=== PATIENT | female | born 1945 | race Caucasian/White ===

== ENCOUNTER 2018-12-10 01:29 | Emergency (ER) | payer MEDICARE, OTHER ==
[~2018-12-10] VITALS: Ht 152.4 cm; Wt 81.6 kg
[2018-12-10 01:57] LABS: BASO # 0.1 x10^3/uL (0.0-0.2); BASO % 1 % (0-3); EOS # 0.4 x10^3/uL (0.0-0.7); EOS % 3 % (0-3); HEMATOCRIT 42.4 % (36.0-47.0); HEMOGLOBIN 13.6 g/dL (12.0-15.5); LYMPH # 1.7 x10^3/uL (1.0-4.8); LYMPH % 12 % (24-48); MEAN CORPUSCULAR HEMOGLOBIN 28 pg (25-35); MEAN CORPUSCULAR HGB CONC 32 g/dL (31-37); MEAN CORPUSCULAR VOLUME 86 fL (79-100); MONO # 0.7 x10^3/uL (0.0-1.1); MONO % 5 % (0-9); NEUT # 11.5 x10^3uL (1.8-7.7); NEUT % 79 % (31-73); PLATELET COUNT 341 x10^3/uL (140-400); RED BLOOD COUNT 4.91 x10^6/uL (3.50-5.40); RED CELL DISTRIBUTION WIDTH 15.1 % (11.5-14.5); WHITE BLOOD COUNT 14.5 x10^3/uL (4.0-11.0)
[2018-12-10] MEDS ORDERED: IV NORMAL SALINE 1000ML BAG 1,000 ML IV ONE (02:00)
[2018-12-10 02:08] LABS: CALCIUM 9.3 mg/dL (8.5-10.1); CREATININE 0.9 mg/dL (0.6-1.0); GFR 61.2
[2018-12-10 02:14] LABS: ALBUMIN 3.4 g/dL (3.4-5.0); ALBUMIN/GLOBULIN RATIO 0.8 (1.0-1.7); TOTAL BILIRUBIN 0.2 mg/dL (0.2-1.0); TOTAL PROTEIN 7.7 g/dL (6.4-8.2)
--- NOTE | 2018-12-10 02:30 | PHYS DOC ---
Past Medical History Past Medical History: Depression, GERD, Hypothyroid Past Surgical History: Other Additional Past Surgical Histo: RIGHT WRIST SURGERY Alcohol Use: None Drug Use: None Adult General Chief Complaint Chief Complaint: BACK PAIN OR INJURY HPI HPI Patient is a 73 year old female presents to the ED with epigastric pain and back pain. She states that the pain started in her mid thoracic region 2.5 hours ago while sitting up in bed reading. She took ibuprofen and then noticed that the pain either radiated to the mid epigastric region or the ibuprofen cause stomach upset, she cannot tell which. She threw up a small amount which seemed to help her epigastric pain. The back pain and epigastric pain are 3/10 achy pains currently, which is slightly better than when they first started. The pain does not radiate anywhere else and has no aggravating or alleviating factors. Denies fever/chills. Denies trauma. Review of Systems Review of Systems Constitutional: Denies fever or chills [] Eyes: Denies change in visual acuity, redness, or eye pain [] HENT: Denies nasal congestion or sore throat [] Respiratory: Denies cough. Admits shortness of breath. Cardiovascular: Admits chest pain. Denies palpitations. GI: Admits abdominal pain, nausea, and vomiting. Denies bloody stools or diarrhea [] : Denies dysuria or hematuria [] Musculoskeletal: Admits back pain. Denies joint pain. Integument: Denies rash or skin lesions [] Neurologic: Denies headache, focal weakness or sensory changes [] Complete systems were reviewed and found to be within normal limits, except as documented in this note. Current Medications Current Medications Current Medications Medications (Trade) Dose Ordered Sig/Kourtney Start Time Stop Time Status Last Admin Dose Admin Hydralazine HCl (Apresoline Inj) 20 mg 1X ONCE 12/10/18 02:45 12/10/18 02:46 DC 12/10/18 03:20 20 MG Info (CONTRAST GIVEN -- Rx MONITORING) 1 each PRN DAILY PRN 12/10/18 03:15 12/10/18 05:24 DC Iohexol (Omnipaque 350 Mg/ml) 90 ml 1X ONCE 12/10/18 03:15 12/10/18 03:16 DC 12/10/18 03:22 90 ML Sodium Chloride 1,000 ml @ 1,000 mls/hr 1X ONCE 12/10/18 02:00 12/10/18 02:59 DC 12/10/18 02:19 1,000 MLS/HR Allergies Allergies Allergies Coded Allergies Type Severity Reaction Last Updated Verified Penicillins Allergy Unknown 12/10/18 Yes Physical Exam Physical Exam Constitutional: Well developed, well nourished, no acute distress, non-toxic appearance. [] HENT: Normocephalic, atraumatic, bilateral external ears normal, nose normal. [] Eyes: EOMI, conjunctiva normal, no discharge. [] Neck: Normal range of motion, no tenderness, supple Cardiovascular: Heart rate regular rhythm, no murmur [] Lungs & Thorax: Bilateral breath sounds clear to auscultation [] Abdomen: Soft, mild epigastric tenderness. Negative Garcia's sign. Skin: Warm, dry, no erythema, no rash. [] Back: No paraspinal tenderness. Patient stated the pain feels deep to the mid thoracic region. No CVA tenderness. [] Extremities: No tenderness, no cyanosis, no clubbing, ROM intact, no edema. [] Neurologic: Alert and oriented, normal motor function, normal sensory function, no focal deficits noted. [] Psychologic: Affect normal, judgement normal, mood normal. [] Current Patient Data Vital Signs Vital Signs Date Time Temp Pulse Resp B/P (MAP) Pulse Ox O2 Delivery O2 Flow Rate FiO2 12/10/18 05:10 92 18 170/74 (106) 98 Room Air 12/10/18 01:35 98.2 98.2 Lab Values Laboratory Tests Test 12/10/18 01:50 12/10/18 02:20 12/10/18 04:05 White Blood Count 14.5 x10^3/uL (4.0-11.0) H Red Blood Count 4.91 x10^6/uL (3.50-5.40) Hemoglobin 13.6 g/dL (12.0-15.5) Hematocrit 42.4 % (36.0-47.0) Mean Corpuscular Volume 86 fL (79-100) Mean Corpuscular Hemoglobin 28 pg (25-35) Mean Corpuscular Hemoglobin Concent 32 g/dL (31-37) Red Cell Distribution Width 15.1 % (11.5-14.5) H Platelet Count 341 x10^3/uL (140-400) Neutrophils (%) (Auto) 79 % (31-73) H Lymphocytes (%) (Auto) 12 % (24-48) L Monocytes (%) (Auto) 5 % (0-9) Eosinophils (%) (Auto) 3 % (0-3) Basophils (%) (Auto) 1 % (0-3) Neutrophils # (Auto) 11.5 x10^3uL (1.8-7.7) H Lymphocytes # (Auto) 1.7 x10^3/uL (1.0-4.8) Monocytes # (Auto) 0.7 x10^3/uL (0.0-1.1) Eosinophils # (Auto) 0.4 x10^3/uL (0.0-0.7) Basophils # (Auto) 0.1 x10^3/uL (0.0-0.2) Sodium Level 141 mmol/L (136-145) Potassium Level 4.0 mmol/L (3.5-5.1) Chloride Level 102 mmol/L (98-107) Carbon Dioxide Level 29 mmol/L (21-32) Anion Gap 10 (6-14) Blood Urea Nitrogen 17 mg/dL (7-20) Creatinine 0.9 mg/dL (0.6-1.0) Estimated GFR (Cockcroft-Gault) 61.2 BUN/Creatinine Ratio 19 (6-20) Glucose Level 165 mg/dL (70-99) H Calcium Level 9.3 mg/dL (8.5-10.1) Magnesium Level 2.0 mg/dL (1.8-2.4) Total Bilirubin 0.2 mg/dL (0.2-1.0) Aspartate Amino Transferase (AST) 17 U/L (15-37) Alanine Aminotransferase (ALT) 19 U/L (14-59) Alkaline Phosphatase 108 U/L (46-116) Creatine Kinase 51 U/L (26-192) Creatine Kinase MB (Mass) 0.6 ng/mL (0.0-3.6) Creatine Kinase MB Relative Index 1.2 % (0-4) Troponin I Quantitative < 0.017 ng/mL (0.000-0.055) < 0.017 ng/mL (0.000-0.055) IL-Flu-Z-Type Natriuretic Peptide 78 pg/mL (0-124) Total Protein 7.7 g/dL (6.4-8.2) Albumin 3.4 g/dL (3.4-5.0) Albumin/Globulin Ratio 0.8 (1.0-1.7) L Lipase 113 U/L (73-393) Urine Collection Type Unknown Urine Color Yellow Urine Clarity Turbid Urine pH 7.0 Urine Specific [place] 1.015 Urine Protein Negative mg/dL (NEG-TRACE) Urine Glucose (UA) 100 mg/dL (NEG) Urine Ketones (Stick) Negative mg/dL (NEG) Urine Blood Negative (NEG) Urine Nitrite Negative (NEG) Urine Bilirubin Negative (NEG) Urine Urobilinogen Dipstick 0.2 mg/dL (0.2 mg/dL) Urine Leukocyte Esterase Negative (NEG) Urine RBC Occ /HPF (0-2) Urine WBC Occ /HPF (0-4) Urine Squamous Epithelial Cells Few /LPF Urine Amorphous Sediment Present /HPF Urine Bacteria 0 /HPF (0-FEW) Urine Mucus Slight /LPF Laboratory Tests 12/10/18 01:50 Laboratory Tests 12/10/18 01:50 EKG EKG Obtained at 0139 on 12/10/2018. The sinus rhythm, 70 bpm, no evidence of STEMI. Radiology/Procedures Radiology/Procedures PROCEDURE: CT ANGIO CHEST ABD PELVIS CT ANGIO CHEST ABD PELVIS dated 12/10/2018 3:01 AM Indication:. Painchest pain, back pain; eval aorta; Omni 350, 90ml. Comparison: No comparison is available. Technique: Contiguous axial imaging of the chest abdomen pelvis performed following the intravenous administration of 90 cc Omnipaque 350. Study performed as dissection protocol with 3-D rotational reconstruction. One or more of the following individualized dose reduction techniques were utilized for this examination: 1. Automated exposure control 2. Adjustment of the mA and/or kV according to patient size 3. Use of iterative reconstruction technique Findings: Contrast bolus is adequate. Thoracic and abdominal aorta is normal in caliber. No intimal flap or periaortic fluid collection. No evidence of aneurysm. The great vessels at the aortic arch are patent. Celiac artery, SMA and bilateral renal arteries are patent. MAREK is patent. There is mild scattered calcific plaquing. Iliac arteries are patent. Heart size upper limits of normal. No pericardial effusion. Coronary artery calcifications. No mediastinal, hilar or axillary lymphadenopathy. Thyroid gland is unremarkable. Central airways are patent. Mild diffuse bronchial wall thickening. Prominent linear markings at both lung bases, likely scar or atelectasis. No consolidation or pleural effusion. No pneumothorax. Liver, spleen, pancreas and kidneys are unremarkable. No hydronephrosis. The gallbladder is distended without evidence of calcific stone or wall thickening. There is a nodule at the left adrenal gland that measures 1.5 cm in size, indeterminate. Right adrenal gland unremarkable. Unopacified GI tract normal in caliber and contour. No focal bowel wall thickening. The appendix is normal in caliber. No ascites or lymphadenopathy. Images of pelvis show nondistended urinary bladder. Uterus and adnexa are unremarkable. No free fluid or lymphadenopathy. Spondylotic change of the throughout the lumbar spine. Prominent Schmorl's node at T12. IMPRESSION: 1. No acute abnormality of chest abdomen or pelvis. No evidence of aortic dissection. 2. Mild bibasilar scar or atelectasis. Otherwise clear lungs. 3. Coronary artery calcifications. 4. Indeterminate small nodule at the left adrenal gland. Statistically, this is most likely benign. Correlate clinically. If indicated, adrenal MRI or washout CT to better evaluate. Electronically signed by: Edwar Chahal MD (12/10/2018 3:33 AM) [facility] Course & Med Decision Making Course & Med Decision Making Pertinent Labs and Imaging studies reviewed. (See chart for details) Patient is a 72-year-old female presents to the ED with midthoracic back pain that potentially radiates through to the epigastrium. EKG stable. CTA Chest/Abd/ Pelvis showed no signs of aortic aneurysm or other acute process. Incidental adrenal nodule noted. Patient notified of abnormality for which future re- evaluation. WBC and neutrophil count elevated. UA showed no signs of infection. Troponin negative 2. Patient stable for discharge with outpatient follow-up with PCP. Discussed findings and plan with patient, who acknowledge understanding and agreement. Ralph Disclaimer Dragon Disclaimer This electronic medical record was generated, in whole or in part, using a voice recognition dictation system. Departure Departure Impression: Primary Impression: Chest pain Disposition: 01 HOME, SELF-CARE Condition: STABLE Patient Instructions: Chest Pain (Nonspecific), [id number] Problem Qualifiers Primary Impression: Chest pain Chest pain type: unspecified Qualified Codes: R07.9 - Chest pain, unspecified EDWAR FRANCISCO DO Dec 10, 2018 02:30
[2018-12-10 02:31] LABS: BILIRUBIN,URINE NEGATIVE (NEG); CLARITY,URINE TURBID; COLOR,URINE YELLOW; NITRITE,URINE NEGATIVE (NEG); PROTEIN,URINE NEGATIVE (NEG-TRACE); UROBILINOGEN,URINE 0.2 mg/dL (0.2 mg/dL)
[2018-12-10] MEDS ORDERED: hydrALAZINE 20 MG/ML VIAL. IVP ONE (02:45)
[2018-12-10 02:56] LABS: AMORPHOUS SEDIMENT,UR PRESENT /HPF; BACTERIA,URINE 0 /HPF (0-FEW); RBC,URINE OCC /HPF (0-2); SQUAMOUS EPITHELIAL CELL,UR FEW /LPF; WBC,URINE OCC /HPF (0-4)
[2018-12-10] MEDS ORDERED: IOHEXOL 350 MG/ML 100 ML VIAL. IV ONE (03:15)
[2018-12-10] MEDS ORDERED: CONTRAST GIVEN. MC PRN (03:15)
--- NOTE | 2018-12-10 03:37 | RAD ---
CT ANGIO CHEST ABD PELVIS dated 12/10/2018 3:01 AM Indication:. Painchest pain, back pain; eval aorta; Omni 350, 90ml. Comparison: No comparison is available. Technique: Contiguous axial imaging of the chest abdomen pelvis performed following the intravenous administration of 90 cc Omnipaque 350. Study performed as dissection protocol with 3-D rotational reconstruction. One or more of the following individualized dose reduction techniques were utilized for this examination: 1. Automated exposure control 2. Adjustment of the mA and/or kV according to patient size 3. Use of iterative reconstruction technique Findings: Contrast bolus is adequate. Thoracic and abdominal aorta is normal in caliber. No intimal flap or periaortic fluid collection. No evidence of aneurysm. The great vessels at the aortic arch are patent. Celiac artery, SMA and bilateral renal arteries are patent. MAREK is patent. There is mild scattered calcific plaquing. Iliac arteries are patent. Heart size upper limits of normal. No pericardial effusion. Coronary artery calcifications. No mediastinal, hilar or axillary lymphadenopathy. Thyroid gland is unremarkable. Central airways are patent. Mild diffuse bronchial wall thickening. Prominent linear markings at both lung bases, likely scar or atelectasis. No consolidation or pleural effusion. No pneumothorax. Liver, spleen, pancreas and kidneys are unremarkable. No hydronephrosis. The gallbladder is distended without evidence of calcific stone or wall thickening. There is a nodule at the left adrenal gland that measures 1.5 cm in size, indeterminate. Right adrenal gland unremarkable. Unopacified GI tract normal in caliber and contour. No focal bowel wall thickening. The appendix is normal in caliber. No ascites or lymphadenopathy. Images of pelvis show nondistended urinary bladder. Uterus and adnexa are unremarkable. No free fluid or lymphadenopathy. Spondylotic change of the throughout the lumbar spine. Prominent Schmorl's node at T12. IMPRESSION: 1. No acute abnormality of chest abdomen or pelvis. No evidence of aortic dissection. 2. Mild bibasilar scar or atelectasis. Otherwise clear lungs. 3. Coronary artery calcifications. 4. Indeterminate small nodule at the left adrenal gland. Statistically, this is most likely benign. Correlate clinically. If indicated, adrenal MRI or washout CT to better evaluate. Electronically signed by: Edwar Chahal MD (12/10/2018 3:33 AM) [place] [id number]
[2018-12-10 05:10] VITALS: BP 170/74
--- NOTE | 2018-12-10 06:52 | EKG ---
[facility] [address] [place] [address] Test Date: 2018-12-10 Test Time: 01:39:21 Pat Name: GALLO GUILLEN Department: Room: Gender: F Power Crane Operator: : [id number] Requested By: MIKAELA FRANCISCO Order Number: [id number] Reading MD: Morteza Arboleda MD Measurements Intervals [place] Rate: 69 P: 51 [place]: 172 QRS: -18 QRSD: 84 T: 60 QT: 416 QTc: 447 Interpretive Statements SINUS RHYTHM LAD NON-SPECIFIC ST/T CHANGES Electronically Signed On 12-10-2018 11:25:03 VARITYPIST by Morteza Arboleda MD
--- NOTE | 2018-12-17 08:01 | NUR ---
Late entry made to Medical Record. IV Stop time transcribed from eMAR to IV spreadsheet
== END 2018-12-10 05:14 | disposition home or self-care (01) ==
LOC: ER 01:29
DX: R07.89 Other chest pain (principal); R10.13 Epigastric pain; M54.5 Low back pain; M54.6 Pain in thoracic spine; K21.9 Gastro-esophageal reflux disease without esophagitis; E03.9 Hypothyroidism, unspecified; Z88.0 Allergy status to penicillin
CPT/HCPCS: 36415; 71275; 74174; 80053; 81001; 82553; 83690; 83735; 83880; 84484; 85025; 93005; 96361; 96374; 99284; J0360; J7030; Q9967